=== PATIENT | female | born 1940 | race Caucasian/White ===

== ENCOUNTER 2021-08-29 14:55 | Inpatient (IN) ==
[2021-08-29 16:02] LABS: Basophils % 0.3 % (0.0-0.8); Eosinophils # 0.3 10*3/uL (0.0-0.87); Hematocrit 38.4 VOL% (35.7-47.0); Hemoglobin 12.3 GM/DL (12.0-16.0); Immature Granulocytes % 1.4 %; Immature Granulocytes Absolute 0.18 #; Lymphocytes # 1.3 10*3/uL (1.4-4.0); Lymphocytes % 10.3 % (21.3-54.2); Mean Corpuscular Volume 89.9 FL (87-102); Mean Platelet Volume 11.2 FL (9.6-12.0); Monocytes # 0.9 10*3/uL (0.11-0.8); Platelet Count 201 T/CUMM (130-400); Red Blood Count 4.27 MC/CUMM (3.8-5.5); Red Cell Distribution Width 14.8 % (9.3-17.3); White Blood Count 12.5 T/CUMM (4-12)
[2021-08-29 16:12] LABS: Alanine Aminotransferase 20 U/L (13-56); Albumin 2.6 G/DL (3.4-5.0); Alkaline Phosphatase 100 U/L (45-117); Aspartate Amino Transferase 16 U/L (0-37); Blood Urea Nitrogen 25 MG/DL (7-18); Calcium 9.1 MG/DL (8.5-10.1); Carbon Dioxide 24 MMOL/L (21-32); Chloride 102 MMOL/L (98-107); Glucose 228 MG/DL (74-106); Osmolality,Calculated 283.8 MOS/KG (273-304); Potassium 3.5 MMOL/L (3.5-5.1); Sodium 137 MMOL/L (136-145); Total Protein 6.8 G/DL (6.4-8.2)
[2021-08-29 17:00] LABS: PT Patient Result 11.4 SECS (10.5-12.0); Partial Thromboplastin Time 27.8 SECS (23.8-32.1)
[2021-08-29] MEDS ORDERED: SODIUM CHLORIDE 0.9% 1,000 ML IV STA (17:23)
[2021-08-29] MEDS ORDERED: cefTRIAXone 1,000 MG in SODIUM CHLORIDE 0.9% 100 ML IV STA (17:24)
[2021-08-29] MEDS ORDERED: ACETAMINOPHEN 325 MG TABLET PO PRN (19:38)
[2021-08-29] MEDS ORDERED: ONDANSETRON 4 MG/2 ML VIAL IV PRN (19:38)
[2021-08-29] MEDS ORDERED: PIPERACILLIN/TAZOBACTAM 3,375 MG in SODIUM CHLORIDE 0.9% 100 ML IV STA (19:38)
[2021-08-29] MEDS ORDERED: GLUCAGON 1 MG VIAL IM PRN (19:38)
[2021-08-29] MEDS ORDERED: DEXTROSE 10% 250 ML BAG IV PRN (19:41)
[2021-08-29] MEDS: SODIUM CHLORIDE 0.9% 1,000 ML IV SCH (20:00)
[2021-08-29 21:12] LABS: Hyaline Casts,Urine 9 /LPF (0-3); Mucus,Urine Moderate /LPF (Occasional); Protein,Urine Negative (Negative); Squamous Epithelial Cell,Urine Many /HPF (0-10); Urine Appearance Clear (Clear); Urine Color Yellow (Yellow); Urine pH 5.5 (4.5-8.0)
[2021-08-29 21:13] LABS: Bilirubin,Urine Negative (Negative); Blood, Urine Negative (Negative); Glucose,Urine (UA) 100 mg/dL (Negative); Ketones,Urine Trace mg/dL (Negative); Nitrite,Urine Negative (Negative); Urine Urobilinogen 0.2 eU/dL (<2.0)
[2021-08-29] MEDS: DOCUSATE SODIUM 100 MG CAPSULE PO SCH (21:25)
[2021-08-29] MEDS: INSULIN REGULAR 100 UNIT/ML SUBCUT SCH (21:26)
[2021-08-30] MEDS: SODIUM CHLORIDE 0.9% 1,000 ML IV SCH ×3 (04:00→21:06)
[2021-08-30 08:44] LABS: Basophils % 0.3 % (0.0-0.8); Hematocrit 34.5 VOL% (35.7-47.0); Hemoglobin 11.2 GM/DL (12.0-16.0); Immature Granulocytes % 1.5 %; Immature Granulocytes Absolute 0.16 #; Lymphocytes # 1.1 10*3/uL (1.4-4.0); Mean Corpuscular HGB Conc 32.5 GM/DL (32-36); Mean Corpuscular Volume 88.7 FL (87-102); Mean Platelet Volume 10.9 FL (9.6-12.0); Monocytes # 0.8 10*3/uL (0.11-0.8); Monocytes % 7.4 % (1.7-12.7); Neutrophils % 80.8 % (38.7-73.9); Platelet Count 182 T/CUMM (130-400); Red Blood Count 3.89 MC/CUMM (3.8-5.5); Red Cell Distribution Width 14.8 % (9.3-17.3); White Blood Count 10.7 T/CUMM (4-12)
[2021-08-30] MEDS ORDERED: NON-FORMULARY MEDICATION (Omeprazole 20 mg Capsule,Delayed Release(Dr/Ec)) PO SCH (09:00)
[2021-08-30 09:09] LABS: Calcium 8.4 MG/DL (8.5-10.1); Osmolality,Calculated 282.5 MOS/KG (273-304); Potassium 3.5 MMOL/L (3.5-5.1)
[2021-08-30] MEDS: INSULIN REGULAR 100 UNIT/ML SUBCUT SCH ×4 (09:59→20:56)
[2021-08-30] MEDS: methylPREDNISolone SOD SUC 40 MG/1 ML VIAL IV SCH ×2 (10:02→20:56)
[2021-08-30] MEDS: hydroCHLOROthiazide 12.5 MG CAPSULE PO SCH (10:03)
[2021-08-30] MEDS: PANTOPRAZOLE 40 MG TABLET PO SCH (10:03)
[2021-08-30] MEDS: DOCUSATE SODIUM 100 MG CAPSULE PO SCH ×2 (10:03→20:57)
[2021-08-30] MEDS: NITROFURANTOIN MACRO/MONO 100 MG CAPSULE PO SCH ×2 (10:03→20:57)
[2021-08-30] MEDS: LEVOFLOXACIN 500 MG TABLET PO SCH (10:04)
[2021-08-30] MEDS: PIPERACILLIN/TAZOBACTAM 3,375 MG in SODIUM CHLORIDE 0.9% 100 ML IV SCH ×2 (10:04→20:55)
[2021-08-30] MEDS: LOSARTAN 50 MG TABLET PO SCH (10:05)
[2021-08-30] MEDS: cloNIDine 0.1 MG TABLET PO SCH (10:07)
[2021-08-30] MEDS: metFORMIN 500 MG TABLET PO SCH (16:42)
[2021-08-30] MEDS: glipiZIDE 10 MG TABLET PO SCH (16:42)
[2021-08-30] MEDS: ROSUVASTATIN 20 MG TABLET PO SCH (20:57)
[2021-08-30] MEDS: ENOXAPARIN 40 MG/0.4 ML SYRINGE SUBCUT SCH (20:57)
[2021-08-30] MEDS: MELOXICAM 7.5 MG TABLET PO SCH (20:57)
[2021-08-30] MEDS: guaiFENesin 200 MG/10 ML UDCUP PO PRN (22:39)
[2021-08-31] MEDS: SODIUM CHLORIDE 0.9% 1,000 ML IV SCH ×3 (02:50→20:21)
[2021-08-31 05:12] LABS: Basophils % 0.2 % (0.0-0.8); Hematocrit 34.4 VOL% (35.7-47.0); Immature Granulocytes Absolute 0.28 #; Lymphocytes % 7.4 % (21.3-54.2); Mean Corpuscular Volume 90.8 FL (87-102); Mean Platelet Volume 11.7 FL (9.6-12.0); Monocytes # 0.4 10*3/uL (0.11-0.8); Monocytes % 2.9 % (1.7-12.7); Neutrophils % 87.5 % (38.7-73.9); Platelet Count 188 T/CUMM (130-400); Red Blood Count 3.79 MC/CUMM (3.8-5.5); Red Cell Distribution Width 14.4 % (9.3-17.3)
[2021-08-31 05:24] LABS: Calcium 8.8 MG/DL (8.5-10.1); Osmolality,Calculated 287.3 MOS/KG (273-304); Potassium 3.8 MMOL/L (3.5-5.1)
[2021-08-31] MEDS: methylPREDNISolone SOD SUC 40 MG/1 ML VIAL IV SCH ×3 (05:36→20:33)
[2021-08-31] MEDS: PIPERACILLIN/TAZOBACTAM 3,375 MG in SODIUM CHLORIDE 0.9% 100 ML IV SCH ×3 (05:36→20:22)
[2021-08-31] MEDS: INSULIN REGULAR 100 UNIT/ML SUBCUT SCH ×4 (09:34→20:17)
[2021-08-31] MEDS: glipiZIDE 10 MG TABLET PO SCH ×2 (09:35→17:38)
[2021-08-31] MEDS: cloNIDine 0.1 MG TABLET PO SCH (09:35)
[2021-08-31] MEDS: DOCUSATE SODIUM 100 MG CAPSULE PO SCH ×2 (09:35→20:16)
[2021-08-31] MEDS: LOSARTAN 50 MG TABLET PO SCH (09:35)
[2021-08-31] MEDS: metFORMIN 500 MG TABLET PO SCH ×2 (09:35→17:38)
[2021-08-31] MEDS: NITROFURANTOIN MACRO/MONO 100 MG CAPSULE PO SCH ×2 (09:36→20:16)
[2021-08-31] MEDS: hydroCHLOROthiazide 12.5 MG CAPSULE PO SCH (09:36)
[2021-08-31] MEDS: MELOXICAM 7.5 MG TABLET PO SCH ×2 (09:36→20:16)
[2021-08-31] MEDS: LEVOFLOXACIN 500 MG TABLET PO SCH (09:36)
[2021-08-31] MEDS: PANTOPRAZOLE 40 MG TABLET PO SCH (09:37)
[2021-08-31] MEDS: NYSTATIN 500,000 UNIT/5 ML UDCUP SWISH/SWAL SCH ×4 (09:38→20:15)
[2021-08-31] MEDS: ROSUVASTATIN 20 MG TABLET PO SCH (20:16)
[2021-08-31] MEDS: ENOXAPARIN 40 MG/0.4 ML SYRINGE SUBCUT SCH (20:16)
[2021-08-31] MEDS: guaiFENesin 200 MG/10 ML UDCUP PO PRN (20:26)
[2021-09-01] MEDS: SODIUM CHLORIDE 0.9% 1,000 ML IV SCH (03:05)
[2021-09-01] MEDS: methylPREDNISolone SOD SUC 40 MG/1 ML VIAL IV SCH ×3 (05:02→21:55)
[2021-09-01] MEDS: PIPERACILLIN/TAZOBACTAM 3,375 MG in SODIUM CHLORIDE 0.9% 100 ML IV SCH ×3 (05:04→21:55)
[2021-09-01 06:13] LABS: Basophils # 0.1 10*3/uL (0.0-0.2); Basophils % 0.3 % (0.0-0.8); Hemoglobin 10.5 GM/DL (12.0-16.0); Immature Granulocytes % 2.7 %; Immature Granulocytes Absolute 0.42 #; Lymphocytes # 1.3 10*3/uL (1.4-4.0); Lymphocytes % 8.7 % (21.3-54.2); Mean Corpuscular HGB Conc 31.8 GM/DL (32-36); Mean Corpuscular Volume 90.7 FL (87-102); Mean Platelet Volume 11.2 FL (9.6-12.0); Monocytes # 0.6 10*3/uL (0.11-0.8); Monocytes % 4.1 % (1.7-12.7); Neutrophils % 84.2 % (38.7-73.9); Platelet Count 220 T/CUMM (130-400); Red Blood Count 3.64 MC/CUMM (3.8-5.5); Red Cell Distribution Width 14.5 % (9.3-17.3); White Blood Count 15.4 T/CUMM (4-12)
[2021-09-01 06:31] LABS: Calcium 8.7 MG/DL (8.5-10.1); Osmolality,Calculated 293.1 MOS/KG (273-304); Potassium 3.8 MMOL/L (3.5-5.1)
[2021-09-01] MEDS ORDERED: ALBUTEROL/IPRATROPIUM 3 ML NEB RESP TX PRN (08:33)
[2021-09-01] MEDS: glipiZIDE 10 MG TABLET PO SCH ×2 (08:51→16:34)
[2021-09-01] MEDS: metFORMIN 500 MG TABLET PO SCH ×2 (08:51→16:34)
[2021-09-01] MEDS: INSULIN REGULAR 100 UNIT/ML SUBCUT SCH ×4 (08:52→21:55)
[2021-09-01] MEDS: DOCUSATE SODIUM 100 MG CAPSULE PO SCH ×2 (10:15→21:55)
[2021-09-01] MEDS: cloNIDine 0.1 MG TABLET PO SCH (10:15)
[2021-09-01] MEDS: NYSTATIN 500,000 UNIT/5 ML UDCUP SWISH/SWAL SCH ×4 (10:15→21:55)
[2021-09-01] MEDS: hydroCHLOROthiazide 12.5 MG CAPSULE PO SCH (10:15)
[2021-09-01] MEDS: MELOXICAM 7.5 MG TABLET PO SCH ×2 (10:15→21:55)
[2021-09-01] MEDS: PANTOPRAZOLE 40 MG TABLET PO SCH (10:15)
[2021-09-01] MEDS: LOSARTAN 50 MG TABLET PO SCH (10:15)
[2021-09-01] MEDS: LEVOFLOXACIN 500 MG TABLET PO SCH (10:16)
[2021-09-01] MEDS: ESTRADIOL 0.01% VAG CREAM 42.5 GM TUBE VAG SCH (10:20)
[2021-09-01] MEDS: ALBUTEROL/IPRATROPIUM 3 ML NEB RESP TX SCH ×2 (13:25→18:55)
[2021-09-01] MEDS: ENOXAPARIN 40 MG/0.4 ML SYRINGE SUBCUT SCH (21:55)
[2021-09-01] MEDS: ROSUVASTATIN 20 MG TABLET PO SCH (21:55)
[2021-09-02] MEDS: ALBUTEROL/IPRATROPIUM 3 ML NEB RESP TX SCH ×4 (00:08→19:40)
[2021-09-02 04:41] LABS: Basophils % 0.2 % (0.0-0.8); Hematocrit 32.7 VOL% (35.7-47.0); Hemoglobin 10.5 GM/DL (12.0-16.0); Immature Granulocytes % 4.6 %; Immature Granulocytes Absolute 0.56 #; Lymphocytes % 7.9 % (21.3-54.2); Mean Corpuscular HGB Conc 32.1 GM/DL (32-36); Mean Corpuscular Volume 90.1 FL (87-102); Mean Platelet Volume 10.9 FL (9.6-12.0); Monocytes # 0.5 10*3/uL (0.11-0.8); Monocytes % 3.8 % (1.7-12.7); Neutrophils % 83.5 % (38.7-73.9); Platelet Count 209 T/CUMM (130-400); Red Blood Count 3.63 MC/CUMM (3.8-5.5); Red Cell Distribution Width 14.6 % (9.3-17.3); White Blood Count 12.2 T/CUMM (4-12)
[2021-09-02 04:59] LABS: Calcium 8.5 MG/DL (8.5-10.1); Osmolality,Calculated 289.5 MOS/KG (273-304); Potassium 3.9 MMOL/L (3.5-5.1)
[2021-09-02 05:04] LABS: Hypochromia Slight; Lymphocytes 11 % (20-55); Microcytosis 1+; Myelocytes 3 %; Total Cells Counted 100
[2021-09-02] MEDS: methylPREDNISolone SOD SUC 40 MG/1 ML VIAL IV SCH ×3 (05:26→21:00)
[2021-09-02] MEDS: PIPERACILLIN/TAZOBACTAM 3,375 MG in SODIUM CHLORIDE 0.9% 100 ML IV SCH ×3 (05:26→22:06)
[2021-09-02] MEDS: metFORMIN 500 MG TABLET PO SCH ×2 (07:47→17:10)
[2021-09-02] MEDS: glipiZIDE 10 MG TABLET PO SCH ×2 (07:47→17:10)
[2021-09-02] MEDS: LEVOFLOXACIN 500 MG TABLET PO SCH (09:19)
[2021-09-02] MEDS: MELOXICAM 7.5 MG TABLET PO SCH ×2 (09:19→21:00)
[2021-09-02] MEDS: hydroCHLOROthiazide 12.5 MG CAPSULE PO SCH (09:19)
[2021-09-02] MEDS: LOSARTAN 50 MG TABLET PO SCH (09:19)
[2021-09-02] MEDS: PANTOPRAZOLE 40 MG TABLET PO SCH (09:19)
[2021-09-02] MEDS: cloNIDine 0.1 MG TABLET PO SCH (09:19)
[2021-09-02] MEDS: NYSTATIN 500,000 UNIT/5 ML UDCUP SWISH/SWAL SCH ×4 (09:20→21:00)
[2021-09-02] MEDS: INSULIN REGULAR 100 UNIT/ML SUBCUT SCH ×3 (09:20→21:00)
[2021-09-02] MEDS: DOCUSATE SODIUM 100 MG CAPSULE PO SCH ×2 (09:24→21:00)
[2021-09-02] MEDS: ROSUVASTATIN 20 MG TABLET PO SCH (21:00)
[2021-09-02] MEDS: ENOXAPARIN 40 MG/0.4 ML SYRINGE SUBCUT SCH (21:00)
[2021-09-03] MEDS: ALBUTEROL/IPRATROPIUM 3 ML NEB RESP TX SCH ×4 (00:20→19:50)
[2021-09-03] MEDS: methylPREDNISolone SOD SUC 40 MG/1 ML VIAL IV SCH ×3 (04:40→20:20)
[2021-09-03] MEDS: PIPERACILLIN/TAZOBACTAM 3,375 MG in SODIUM CHLORIDE 0.9% 100 ML IV SCH ×3 (04:40→21:03)
[2021-09-03] MEDS: INSULIN REGULAR 100 UNIT/ML SUBCUT SCH ×4 (09:14→20:20)
[2021-09-03] MEDS: cloNIDine 0.1 MG TABLET PO SCH (09:14)
[2021-09-03] MEDS: metFORMIN 500 MG TABLET PO SCH ×2 (09:14→17:46)
[2021-09-03] MEDS: LOSARTAN 50 MG TABLET PO SCH (09:14)
[2021-09-03] MEDS: hydroCHLOROthiazide 12.5 MG CAPSULE PO SCH (09:15)
[2021-09-03] MEDS: LEVOFLOXACIN 500 MG TABLET PO SCH (09:15)
[2021-09-03] MEDS: NYSTATIN 500,000 UNIT/5 ML UDCUP SWISH/SWAL SCH ×4 (09:15→20:20)
[2021-09-03] MEDS: PANTOPRAZOLE 40 MG TABLET PO SCH (09:15)
[2021-09-03] MEDS: MELOXICAM 7.5 MG TABLET PO SCH ×2 (09:15→20:20)
[2021-09-03] MEDS: glipiZIDE 10 MG TABLET PO SCH ×2 (09:15→17:47)
[2021-09-03] MEDS: DOCUSATE SODIUM 100 MG CAPSULE PO SCH ×2 (09:23→20:20)
[2021-09-03] MEDS ORDERED: FUROSEMIDE 40 MG/4 ML VIAL IV ONE (09:44)
[2021-09-03] MEDS: ROSUVASTATIN 20 MG TABLET PO SCH (20:20)
[2021-09-03] MEDS: ENOXAPARIN 40 MG/0.4 ML SYRINGE SUBCUT SCH (20:20)
[2021-09-04] MEDS: ALBUTEROL/IPRATROPIUM 3 ML NEB RESP TX SCH ×4 (00:40→19:05)
[2021-09-04] MEDS: PIPERACILLIN/TAZOBACTAM 3,375 MG in SODIUM CHLORIDE 0.9% 100 ML IV SCH ×4 (04:40→22:15)
[2021-09-04] MEDS: methylPREDNISolone SOD SUC 40 MG/1 ML VIAL IV SCH ×3 (04:40→20:25)
[2021-09-04 05:15] LABS: Basophils # 0.1 10*3/uL (0.0-0.2); Basophils % 0.4 % (0.0-0.8); Hematocrit 34.9 VOL% (35.7-47.0); Hemoglobin 11.1 GM/DL (12.0-16.0); Immature Granulocytes % 5.7 %; Immature Granulocytes Absolute 0.73 #; Lymphocytes # 1.2 10*3/uL (1.4-4.0); Lymphocytes % 9.7 % (21.3-54.2); Mean Corpuscular HGB Conc 31.8 GM/DL (32-36); Mean Corpuscular Volume 88.8 FL (87-102); Mean Platelet Volume 11.4 FL (9.6-12.0); Monocytes # 0.6 10*3/uL (0.11-0.8); Monocytes % 4.4 % (1.7-12.7); NRBC # 0.02 10*3/uL; Neutrophils % 79.8 % (38.7-73.9); Platelet Count 236 T/CUMM (130-400); Red Blood Count 3.93 MC/CUMM (3.8-5.5); Red Cell Distribution Width 14.5 % (9.3-17.3); White Blood Count 12.7 T/CUMM (4-12)
[2021-09-04 05:33] LABS: Calcium 8.8 MG/DL (8.5-10.1); Osmolality,Calculated 285.7 MOS/KG (273-304)
[2021-09-04 06:04] LABS: Anisocytosis 1+; Band Neutrophils 5 % (0-10); Lymphocytes 15 % (20-55); Myelocytes 3 %; Platelet Estimate Normal; Total Cells Counted 100
[2021-09-04] MEDS: FERROUS SULFATE 325 MG TABLET PO SCH (08:31)
[2021-09-04] MEDS: MELOXICAM 7.5 MG TABLET PO SCH ×2 (08:31→20:25)
[2021-09-04] MEDS: PANTOPRAZOLE 40 MG TABLET PO SCH (08:31)
[2021-09-04] MEDS: glipiZIDE 10 MG TABLET PO SCH ×2 (08:31→18:07)
[2021-09-04] MEDS: LOSARTAN 50 MG TABLET PO SCH (08:31)
[2021-09-04] MEDS: hydroCHLOROthiazide 12.5 MG CAPSULE PO SCH (08:32)
[2021-09-04] MEDS: LEVOFLOXACIN 500 MG TABLET PO SCH (08:32)
[2021-09-04] MEDS: cloNIDine 0.1 MG TABLET PO SCH (08:32)
[2021-09-04] MEDS: metFORMIN 500 MG TABLET PO SCH ×2 (08:32→18:07)
[2021-09-04] MEDS: NYSTATIN 500,000 UNIT/5 ML UDCUP SWISH/SWAL SCH ×4 (08:33→20:25)
[2021-09-04] MEDS: INSULIN REGULAR 100 UNIT/ML SUBCUT SCH ×4 (08:37→20:25)
[2021-09-04] MEDS: DOCUSATE SODIUM 100 MG CAPSULE PO SCH ×2 (08:39→20:25)
[2021-09-04] MEDS ORDERED: MAGNESIUM SULF RIDER 2 GM/50 ML PREMIX IV ONE (09:18)
[2021-09-04] MEDS: ROSUVASTATIN 20 MG TABLET PO SCH (20:25)
[2021-09-04] MEDS: ENOXAPARIN 40 MG/0.4 ML SYRINGE SUBCUT SCH (20:25)
[2021-09-05] MEDS: ALBUTEROL/IPRATROPIUM 3 ML NEB RESP TX SCH ×4 (00:25→19:00)
[2021-09-05 04:50] LABS: Basophils % 0.3 % (0.0-0.8); Hematocrit 36.1 VOL% (35.7-47.0); Hemoglobin 11.7 GM/DL (12.0-16.0); Immature Granulocytes % 5.6 %; Immature Granulocytes Absolute 0.67 #; Lymphocytes # 1.2 10*3/uL (1.4-4.0); Lymphocytes % 9.6 % (21.3-54.2); Mean Corpuscular HGB Conc 32.4 GM/DL (32-36); Mean Corpuscular Volume 89.4 FL (87-102); Mean Platelet Volume 11.1 FL (9.6-12.0); Monocytes # 0.5 10*3/uL (0.11-0.8); Monocytes % 4.1 % (1.7-12.7); Neutrophils % 80.4 % (38.7-73.9); Platelet Count 240 T/CUMM (130-400); Red Blood Count 4.04 MC/CUMM (3.8-5.5); Red Cell Distribution Width 14.6 % (9.3-17.3)
[2021-09-05] MEDS: methylPREDNISolone SOD SUC 40 MG/1 ML VIAL IV SCH (05:00)
[2021-09-05] MEDS: PIPERACILLIN/TAZOBACTAM 3,375 MG in SODIUM CHLORIDE 0.9% 100 ML IV SCH ×3 (05:00→21:56)
[2021-09-05 05:12] LABS: Calcium 8.4 MG/DL (8.5-10.1); Osmolality,Calculated 283.7 MOS/KG (273-304); Potassium 4.1 MMOL/L (3.5-5.1)
[2021-09-05 05:15] LABS: Lymphocytes 7 % (20-55); Platelet Estimate Adequate; Total Cells Counted 100
[2021-09-05] MEDS: metFORMIN 500 MG TABLET PO SCH ×2 (07:33→17:00)
[2021-09-05] MEDS: glipiZIDE 10 MG TABLET PO SCH ×2 (07:33→17:00)
[2021-09-05] MEDS: MELOXICAM 7.5 MG TABLET PO SCH ×2 (09:38→20:40)
[2021-09-05] MEDS: LOSARTAN 50 MG TABLET PO SCH (09:38)
[2021-09-05] MEDS: PANTOPRAZOLE 40 MG TABLET PO SCH (09:38)
[2021-09-05] MEDS: hydroCHLOROthiazide 12.5 MG CAPSULE PO SCH (09:38)
[2021-09-05] MEDS: FERROUS SULFATE 325 MG TABLET PO SCH (09:38)
[2021-09-05] MEDS: cloNIDine 0.1 MG TABLET PO SCH (09:38)
[2021-09-05] MEDS: NYSTATIN 500,000 UNIT/5 ML UDCUP SWISH/SWAL SCH ×4 (09:39→20:40)
[2021-09-05] MEDS: LEVOFLOXACIN 500 MG TABLET PO SCH (09:39)
[2021-09-05] MEDS: predniSONE 20 MG TABLET PO SCH (09:39)
[2021-09-05] MEDS: ESTRADIOL 0.01% VAG CREAM 42.5 GM TUBE VAG SCH (14:02)
[2021-09-05] MEDS: DOCUSATE SODIUM 100 MG CAPSULE PO SCH ×2 (14:02→20:40)
[2021-09-05] MEDS: INSULIN REGULAR 100 UNIT/ML SUBCUT SCH ×4 (14:02→20:40)
[2021-09-05] MEDS: ENOXAPARIN 40 MG/0.4 ML SYRINGE SUBCUT SCH (20:40)
[2021-09-05] MEDS: ROSUVASTATIN 20 MG TABLET PO SCH (20:40)
[2021-09-06] MEDS: ALBUTEROL/IPRATROPIUM 3 ML NEB RESP TX SCH ×2 (00:22→07:52)
[2021-09-06] MEDS: PIPERACILLIN/TAZOBACTAM 3,375 MG in SODIUM CHLORIDE 0.9% 100 ML IV SCH (04:20)
[2021-09-06 05:17] LABS: Basophils % 0.3 % (0.0-0.8); Hematocrit 38.6 VOL% (35.7-47.0); Hemoglobin 12.4 GM/DL (12.0-16.0); Immature Granulocytes % 3.7 %; Immature Granulocytes Absolute 0.43 #; Lymphocytes % 17.1 % (21.3-54.2); Mean Corpuscular HGB Conc 32.1 GM/DL (32-36); Mean Corpuscular Volume 90.8 FL (87-102); Mean Platelet Volume 10.8 FL (9.6-12.0); Monocytes # 0.6 10*3/uL (0.11-0.8); Monocytes % 5.4 % (1.7-12.7); Neutrophils % 73.5 % (38.7-73.9); Platelet Count 252 T/CUMM (130-400); Red Blood Count 4.25 MC/CUMM (3.8-5.5); Red Cell Distribution Width 14.8 % (9.3-17.3); White Blood Count 11.6 T/CUMM (4-12)
[2021-09-06 05:31] LABS: Calcium 8.6 MG/DL (8.5-10.1); Osmolality,Calculated 278.8 MOS/KG (273-304); Potassium 3.9 MMOL/L (3.5-5.1)
[2021-09-06] MEDS ORDERED: ALBUTEROL 0.63 MG/3 ML NEB RESP TX PRN (07:36)
[2021-09-06 07:37] VITALS: BP 130/61
[2021-09-06] MEDS: glipiZIDE 10 MG TABLET PO SCH (08:52)
[2021-09-06] MEDS: metFORMIN 500 MG TABLET PO SCH (08:52)
[2021-09-06] MEDS: LOSARTAN 50 MG TABLET PO SCH (08:52)
[2021-09-06] MEDS: predniSONE 20 MG TABLET PO SCH (08:53)
[2021-09-06] MEDS: NYSTATIN 500,000 UNIT/5 ML UDCUP SWISH/SWAL SCH (08:53)
[2021-09-06] MEDS: hydroCHLOROthiazide 12.5 MG CAPSULE PO SCH (08:53)
[2021-09-06] MEDS: cloNIDine 0.1 MG TABLET PO SCH (08:53)
[2021-09-06] MEDS: FERROUS SULFATE 325 MG TABLET PO SCH (08:53)
[2021-09-06] MEDS: LEVOFLOXACIN 500 MG TABLET PO SCH (08:53)
[2021-09-06] MEDS: MELOXICAM 7.5 MG TABLET PO SCH (08:53)
[2021-09-06] MEDS: PANTOPRAZOLE 40 MG TABLET PO SCH (08:53)
[2021-09-06] MEDS: DOCUSATE SODIUM 100 MG CAPSULE PO SCH (08:56)
[2021-09-06] MEDS: INSULIN REGULAR 100 UNIT/ML SUBCUT SCH (08:56)
[2021-09-07 14:51] LABS: Histoplasma Immnodiffusion Negative (Negative)
== END 2021-09-06 10:35 | disposition home or self-care (01) | DRG 202 ==
LOC: N.ED 14:55 → N.EDINP 17:47 → N.5E 18:46
PROVIDERS: ADMIT Family Medicine; ATTEND Family Medicine